=== PATIENT | male | born 1955 | race Caucasian/White ===

== ENCOUNTER 2021-07-30 20:03 | Inpatient (IN) ==
[2021-07-30] MEDS ORDERED: NITROGLYCERIN SL 0.4 MG TABLET SL PRN (22:17)
[2021-07-30] MEDS ORDERED: ZALEPLON 5 MG CAPSULE PO PRN (22:37)
[2021-07-30] MEDS ORDERED: ALBUTEROL 2.5 MG/3 ML NEB RESP TX PRN (22:37)
[2021-07-30] MEDS ORDERED: guaiFENesin/DM ER 600-30 MG TABLET PO PRN (22:37)
[2021-07-30] MEDS ORDERED: hydrALAZINE 20 MG/1 ML VIAL IV PRN (22:37)
[2021-07-30] MEDS ORDERED: diphenhydrAMINE CAP 25 MG CAPSULE PO PRN (22:37)
[2021-07-30] MEDS ORDERED: GLUCAGON 1 MG VIAL IM PRN ×2 (22:37)
[2021-07-30] MEDS ORDERED: MORPHINE 2 MG/1 ML SYRINGE IV PRN (22:37)
[2021-07-30] MEDS ORDERED: DOCUSATE SODIUM 100 MG CAPSULE PO PRN (22:37)
[2021-07-30] MEDS ORDERED: ONDANSETRON 4 MG/2 ML VIAL IV PRN (22:37)
[2021-07-30] MEDS ORDERED: NICOTINE 21 MG/24 HR PATCH TRANSDERM PRN (22:37)
[2021-07-30] MEDS ORDERED: DEXTROSE 50% 25 GM/50 ML VIAL IV PRN ×2 (22:37)
[2021-07-30 23:17] LABS: Basophils % 0.6 % (0.0-0.8); Eosinophils # 0.1 10*3/uL (0.0-0.87); Eosinophils % 1.8 % (0.00-10.9); Hemoglobin 12.4 GM/DL (14.0-18.0); Immature Granulocytes % 0.6 %; Immature Granulocytes Absolute 0.03 #; Lymphocytes # 1.4 10*3/uL (1.4-4.0); Lymphocytes % 27.2 % (21.2-54.2); Mean Corpuscular Volume 84.2 FL (87-102); Mean Platelet Volume 9.4 FL (9.6-12.0); Monocytes % 9.5 % (1.7-12.7); Neutrophils % 60.3 % (38.7-73.9); Platelet Count 291 T/CUMM (130-400); Red Blood Count 4.75 MC/CUMM (3.8-5.5); Red Cell Distribution Width 16.5 % (9.3-17.3)
[2021-07-30 23:33] LABS: Calcium 8.7 MG/DL (8.5-10.1); Osmolality,Calculated 280.7 MOS/KG (273-304); Potassium 4.2 MMOL/L (3.5-5.1)
[2021-07-31] MEDS ORDERED: TICAGRELOR 90 MG TABLET PO ONE (00:26)
[2021-07-31 02:22] LABS: Risk Ratio 3.34; VLDL Cholesterol 26.8 MG/DL
[2021-07-31] MEDS: LEVOTHYROXINE 50 MCG TABLET PO SCH (05:53)
[2021-07-31] MEDS ORDERED: PIOGLITAZONE 15 MG TABLET PO SCH (09:00)
[2021-07-31] MEDS: METOPROLOL TARTRATE 25 MG TABLET PO SCH ×2 (09:43→20:47)
[2021-07-31] MEDS: lisinopriL 5 MG TABLET PO SCH (09:43)
[2021-07-31] MEDS: ASPIRIN 325 MG TABLET PO SCH (09:43)
[2021-07-31] MEDS: PANTOPRAZOLE 40 MG TABLET PO SCH (09:43)
[2021-07-31] MEDS: INSULIN LISPRO 100 UNIT/ML SUBCUT SCH ×4 (09:53→20:49)
[2021-07-31] MEDS: ATORVASTATIN 40 MG TABLET PO SCH (20:47)
[2021-07-31] MEDS: INSULIN GLARGINE 100 UNIT/ML SUBCUT SCH (20:49)
[2021-08-01] MEDS: LEVOTHYROXINE 50 MCG TABLET PO SCH (05:56)
[2021-08-01 06:15] LABS: Basophils % 0.6 % (0.0-0.8); Eosinophils # 0.6 10*3/uL (0.0-0.87); Eosinophils % 11.6 % (0.00-10.9); Hematocrit 37.7 VOL% (42.0-52.0); Hemoglobin 11.4 GM/DL (14.0-18.0); Immature Granulocytes % 0.2 %; Immature Granulocytes Absolute 0.01 #; Lymphocytes # 1.7 10*3/uL (1.4-4.0); Lymphocytes % 36.1 % (21.2-54.2); Mean Corpuscular HGB Conc 30.2 GM/DL (32-36); Mean Corpuscular Volume 85.1 FL (87-102); Mean Platelet Volume 10.4 FL (9.6-12.0); Monocytes % 14.9 % (1.7-12.7); Neutrophils % 36.6 % (38.7-73.9); Platelet Count 265 T/CUMM (130-400); Red Blood Count 4.43 MC/CUMM (3.8-5.5); Red Cell Distribution Width 16.4 % (9.3-17.3); White Blood Count 4.8 T/CUMM (4-12)
[2021-08-01 06:40] LABS: Calcium 8.2 MG/DL (8.5-10.1); Osmolality,Calculated 282.7 MOS/KG (273-304); Potassium 4.8 MMOL/L (3.5-5.1)
[2021-08-01 06:43] LABS: Band Neutrophils 5 % (0-10); Eosinophils 13 % (0-10); Hypochromasia 1+; Lymphocytes 34 % (20-55); Microcytosis 1+; Segmented Neutrophils 36 % (50-85); Total Cells Counted 100
[2021-08-01 06:44] LABS: Atypical Lymphocytes Few; Platelet Estimate Normal
[2021-08-01] MEDS: INSULIN LISPRO 100 UNIT/ML SUBCUT SCH ×4 (07:05→20:16)
[2021-08-01] MEDS: CLOPIDOGREL 75 MG TABLET PO SCH (08:57)
[2021-08-01] MEDS: METOPROLOL TARTRATE 25 MG TABLET PO SCH (08:57)
[2021-08-01] MEDS: lisinopriL 5 MG TABLET PO SCH (08:58)
[2021-08-01] MEDS: PANTOPRAZOLE 40 MG TABLET PO SCH (08:58)
[2021-08-01] MEDS: ASPIRIN 325 MG TABLET PO SCH (08:59)
[2021-08-01] MEDS: ATORVASTATIN 40 MG TABLET PO SCH (20:16)
[2021-08-01] MEDS: INSULIN GLARGINE 100 UNIT/ML SUBCUT SCH (20:17)
[2021-08-02] MEDS: LEVOTHYROXINE 50 MCG TABLET PO SCH (06:01)
[2021-08-02] MEDS ORDERED: MAGNESIUM SULF RIDER 2 GM/50 ML PREMIX IV PRN ×2 (07:09→13:31)
[2021-08-02] MEDS ORDERED: POTASSIUM CHLORIDE RIDER 10 MEQ/100 ML PREMIX IV PRN ×2 (07:09→13:31)
[2021-08-02] MEDS: ASPIRIN 325 MG TABLET PO SCH (08:19)
[2021-08-02] MEDS: CLOPIDOGREL 75 MG TABLET PO SCH (08:19)
[2021-08-02] MEDS: INSULIN LISPRO 100 UNIT/ML SUBCUT SCH ×4 (08:19→20:28)
[2021-08-02] MEDS: PANTOPRAZOLE 40 MG TABLET PO SCH (08:19)
[2021-08-02] MEDS: lisinopriL 5 MG TABLET PO SCH (08:19)
[2021-08-02 08:51] LABS: Basophils % 0.8 % (0.0-0.8); Eosinophils # 0.4 10*3/uL (0.0-0.87); Eosinophils % 8.4 % (0.00-10.9); Hematocrit 40.8 VOL% (42.0-52.0); Hemoglobin 12.4 GM/DL (14.0-18.0); Immature Granulocytes % 0.2 %; Immature Granulocytes Absolute 0.01 #; Lymphocytes # 1.6 10*3/uL (1.4-4.0); Lymphocytes % 32.8 % (21.2-54.2); Mean Corpuscular HGB Conc 30.4 GM/DL (32-36); Mean Corpuscular Volume 84.8 FL (87-102); Mean Platelet Volume 9.9 FL (9.6-12.0); Monocytes % 8.8 % (1.7-12.7); Platelet Count 301 T/CUMM (130-400); Red Blood Count 4.81 MC/CUMM (3.8-5.5); Red Cell Distribution Width 16.3 % (9.3-17.3); White Blood Count 4.8 T/CUMM (4-12)
[2021-08-02 09:22] LABS: Calcium 8.9 MG/DL (8.5-10.1); Osmolality,Calculated 283.8 MOS/KG (273-304); Potassium 5.3 MMOL/L (3.5-5.1)
[2021-08-02 09:26] LABS: % Iron Saturation 10.7 % (18-50); Ferritin 80.5 ng/mL (26-388)
[2021-08-02 09:48] LABS: Anisocytosis 1+; Band Neutrophils 6 % (0-10); Eosinophils 9 % (0-10); Lymphocytes 36 % (20-55); Platelet Estimate Normal; Segmented Neutrophils 40 % (50-85); Total Cells Counted 100
[2021-08-02 09:49] LABS: Macrocytosis Slight
[2021-08-02] MEDS ORDERED: DIAZEPAM 5 MG TABLET PO ONE (10:00)
[2021-08-02] MEDS ORDERED: diphenhydrAMINE CAP 25 MG CAPSULE PO ONE (10:00)
[2021-08-02] MEDS: SODIUM CHLORIDE 0.9% 1,000 ML IV SCH ×2 (10:04→15:30)
[2021-08-02] MEDS ORDERED: MIDAZOLAM 2 MG/2 ML VIAL ONE (10:21)
[2021-08-02] MEDS ORDERED: NITROGLYCERIN DRIP 50 MG/250 ML BOTTLE IV ONE (10:21)
[2021-08-02] MEDS ORDERED: fentaNYL 100 MCG/2 ML VIAL ONE (10:21)
[2021-08-02] MEDS ORDERED: VERAPAMIL 5 MG/2 ML VIAL ONE (10:22)
[2021-08-02] MEDS ORDERED: HEPARIN/NACL 0.9% 2 UNITS/ML 3,000 UNIT/1,500 ML BAG IV ONE (10:30)
[2021-08-02] MEDS ORDERED: LIDOCAINE 1% 20 ML VIAL ONE (10:30)
[2021-08-02] MEDS ORDERED: HEPARIN 5,000 UNIT/1 ML VIAL ONE ×2 (10:37→11:07)
[2021-08-02] MEDS ORDERED: HEPARIN/NACL 0.9% 2 UNITS/ML 1,000 UNIT/500 ML BAG IV ONE (11:26)
[2021-08-02] MEDS ORDERED: NITROPRUSSIDE 50 MG/2 ML VIAL ONE (11:39)
[2021-08-02] MEDS ORDERED: ATROPINE 1 MG/10 ML SYRINGE ONE (11:43)
[2021-08-02] MEDS ORDERED: MORPHINE 10 MG/1 ML VIAL ONE (12:01)
[2021-08-02] MEDS ORDERED: NITROGLYCERIN SL 0.4 MG TABLET SL PRN (12:52)
[2021-08-02] MEDS: NITROGLYCERIN 2% OINT 1 INCH/GM PACK TOP SCH ×2 (19:16→23:45)
[2021-08-02] MEDS: INSULIN GLARGINE 100 UNIT/ML SUBCUT SCH (20:27)
[2021-08-02] MEDS: ATORVASTATIN 40 MG TABLET PO SCH (20:27)
[2021-08-03] MEDS: NITROGLYCERIN 2% OINT 1 INCH/GM PACK TOP SCH ×2 (05:47→20:31)
[2021-08-03] MEDS: LEVOTHYROXINE 50 MCG TABLET PO SCH (05:47)
[2021-08-03 07:18] LABS: Basophils % 0.3 % (0.0-0.8); Eosinophils # 0.4 10*3/uL (0.0-0.87); Eosinophils % 4.7 % (0.00-10.9); Hemoglobin 11.5 GM/DL (14.0-18.0); Immature Granulocytes % 0.3 %; Immature Granulocytes Absolute 0.02 #; Lymphocytes % 26.3 % (21.2-54.2); Mean Corpuscular HGB Conc 31.1 GM/DL (32-36); Mean Corpuscular Volume 85.3 FL (87-102); Mean Platelet Volume 9.9 FL (9.6-12.0); Monocytes % 8.3 % (1.7-12.7); Neutrophils % 60.1 % (38.7-73.9); Platelet Count 295 T/CUMM (130-400); Red Blood Count 4.34 MC/CUMM (3.8-5.5); Red Cell Distribution Width 16.3 % (9.3-17.3); White Blood Count 7.7 T/CUMM (4-12)
[2021-08-03 07:48] LABS: Calcium 8.2 MG/DL (8.5-10.1); Osmolality,Calculated 279.3 MOS/KG (273-304); Potassium 3.9 MMOL/L (3.5-5.1)
[2021-08-03 07:50] LABS: Calcium 8.2 MG/DL (8.5-10.1); Osmolality,Calculated 279.3 MOS/KG (273-304); Potassium 3.9 MMOL/L (3.5-5.1)
[2021-08-03] MEDS: CLOPIDOGREL 75 MG TABLET PO SCH (09:47)
[2021-08-03] MEDS: ASPIRIN 325 MG TABLET PO SCH (09:47)
[2021-08-03] MEDS: lisinopriL 5 MG TABLET PO SCH (09:48)
[2021-08-03] MEDS: PANTOPRAZOLE 40 MG TABLET PO SCH (09:48)
[2021-08-03] MEDS: amLODIPine 5 MG TABLET PO SCH (09:48)
[2021-08-03] MEDS: INSULIN LISPRO 100 UNIT/ML SUBCUT SCH ×4 (10:02→20:31)
[2021-08-03] MEDS: ACETAMINOPHEN 325 MG TABLET PO PRN (20:30)
[2021-08-03] MEDS: ATORVASTATIN 40 MG TABLET PO SCH (20:30)
[2021-08-03] MEDS: INSULIN GLARGINE 100 UNIT/ML SUBCUT SCH (20:31)
[2021-08-04] MEDS: LEVOTHYROXINE 50 MCG TABLET PO SCH (05:58)
[2021-08-04 06:31] LABS: Calcium 8.3 MG/DL (8.5-10.1); Osmolality,Calculated 284.1 MOS/KG (273-304); Potassium 3.7 MMOL/L (3.5-5.1)
[2021-08-04] MEDS: INSULIN LISPRO 100 UNIT/ML SUBCUT SCH ×4 (08:16→21:19)
[2021-08-04] MEDS: CLOPIDOGREL 75 MG TABLET PO SCH (09:34)
[2021-08-04] MEDS: lisinopriL 5 MG TABLET PO SCH (09:34)
[2021-08-04] MEDS: ASPIRIN EC 81 MG TABLET PO SCH (09:34)
[2021-08-04] MEDS: PANTOPRAZOLE 40 MG TABLET PO SCH (09:34)
[2021-08-04] MEDS: amLODIPine 5 MG TABLET PO SCH (09:34)
[2021-08-04] MEDS: NITROGLYCERIN 2% OINT 1 INCH/GM PACK TOP SCH ×2 (09:35→21:20)
[2021-08-04] MEDS: ACETAMINOPHEN 325 MG TABLET PO PRN (09:39)
[2021-08-04] MEDS ORDERED: diphenhydrAMINE CAP 25 MG CAPSULE PO ONE (12:30)
[2021-08-04] MEDS ORDERED: DIAZEPAM 5 MG TABLET PO ONE (12:30)
[2021-08-04] MEDS ORDERED: HEPARIN/NACL 0.9% 2 UNITS/ML 3,000 UNIT/1,500 ML BAG IV ONE (12:36)
[2021-08-04] MEDS ORDERED: LIDOCAINE 1% 20 ML VIAL ONE (12:36)
[2021-08-04] MEDS ORDERED: MIDAZOLAM 2 MG/2 ML VIAL ONE ×2 (13:03→13:24)
[2021-08-04] MEDS ORDERED: fentaNYL 100 MCG/2 ML VIAL ONE (13:03)
[2021-08-04] MEDS ORDERED: HEPARIN 5,000 UNIT/1 ML VIAL ONE (13:22)
[2021-08-04] MEDS ORDERED: NITROGLYCERIN DRIP 0 MG/0 ML BOTTLE IV ONE (13:30)
[2021-08-04] MEDS ORDERED: NITROGLYCERIN DRIP 50 MG/250 ML BOTTLE IV ONE (13:32)
[2021-08-04] MEDS: SODIUM CHLORIDE 0.9% 1,000 ML IV SCH ×2 (14:58→21:19)
[2021-08-04] MEDS: INSULIN GLARGINE 100 UNIT/ML SUBCUT SCH (21:19)
[2021-08-04] MEDS: ATORVASTATIN 40 MG TABLET PO SCH (21:20)
[2021-08-05] MEDS: LEVOTHYROXINE 50 MCG TABLET PO SCH (06:05)
[2021-08-05 07:08] LABS: Basophils % 0.6 % (0.0-0.8); Eosinophils # 0.3 10*3/uL (0.0-0.87); Eosinophils % 6.5 % (0.00-10.9); Hematocrit 33.7 VOL% (42.0-52.0); Hemoglobin 10.4 GM/DL (14.0-18.0); Immature Granulocytes % 0.2 %; Immature Granulocytes Absolute 0.01 #; Lymphocytes # 1.7 10*3/uL (1.4-4.0); Lymphocytes % 34.6 % (21.2-54.2); Mean Corpuscular HGB Conc 30.9 GM/DL (32-36); Mean Corpuscular Volume 85.1 FL (87-102); Mean Platelet Volume 9.9 FL (9.6-12.0); Monocytes % 10.9 % (1.7-12.7); Neutrophils % 47.2 % (38.7-73.9); Platelet Count 269 T/CUMM (130-400); Red Blood Count 3.96 MC/CUMM (3.8-5.5); Red Cell Distribution Width 15.9 % (9.3-17.3); White Blood Count 4.9 T/CUMM (4-12)
[2021-08-05 07:11] LABS: Calcium 8.3 MG/DL (8.5-10.1); Osmolality,Calculated 279.3 MOS/KG (273-304); Potassium 3.8 MMOL/L (3.5-5.1)
[2021-08-05] MEDS: ASPIRIN EC 81 MG TABLET PO SCH (08:10)
[2021-08-05] MEDS: lisinopriL 5 MG TABLET PO SCH (08:10)
[2021-08-05] MEDS: PANTOPRAZOLE 40 MG TABLET PO SCH (08:10)
[2021-08-05] MEDS: amLODIPine 5 MG TABLET PO SCH (08:10)
[2021-08-05] MEDS: CLOPIDOGREL 75 MG TABLET PO SCH (08:10)
[2021-08-05 08:19] VITALS: BP 158/66
[2021-08-05] MEDS: INSULIN LISPRO 100 UNIT/ML SUBCUT SCH ×2 (09:09→12:03)
[2021-08-05] MEDS: NITROGLYCERIN 2% OINT 1 INCH/GM PACK TOP SCH (09:11)
== END 2021-08-05 11:49 | disposition home or self-care (01) | DRG 247 ==
LOC: SUATTDRO 21:49 → N.TELEN 21:49
PROVIDERS: ADMIT Internal Medicine; ATTEND Internal Medicine Cardiovascular Disease
PROC: CLCCHCL (ICD-10-PCS; 2021-08-02 10:45)